=== PATIENT | female | born 1980 | race Caucasian/White ===

== ENCOUNTER → 2022-09-02 | Outpatient (CLI) | payer BC ==
[~2022-09-02] MED LIST: PROHANCE 279.3MG/ML 15ML VIAL As Ordered ONE
== END ==
LOC: M RAD 10:28
PROVIDERS: ATTEND Specialist
DX: N28.1 Cyst of kidney, acquired (principal)
CPT/HCPCS: 74183; A9576

== ENCOUNTER → 2023-09-14 | Outpatient (CLI) | payer BC | LOC: M RAD 10:51 | PROVIDERS: ATTEND Physician Assistant | DX: N28.1 Cyst of kidney, acquired (principal) ==

== ENCOUNTER → 2024-10-02 | Outpatient (CLI) | payer BC | LOC: M RAD 10:24 | PROVIDERS: ATTEND Physician Assistant | DX: N28.1 Cyst of kidney, acquired (principal); N83.201 Unspecified ovarian cyst, right side ==

== ENCOUNTER → 2025-04-15 | Outpatient (CLI) | payer BC | LOC: M RAD 13:42 | PROVIDERS: ATTEND Specialist | DX: N28.1 Cyst of kidney, acquired (principal) ==